=== PATIENT | female | born 1940 | race Caucasian/White ===

== ENCOUNTER 2016-10-25 10:40 | Outpatient (CLI) | payer OTHER ==
--- NOTE | 2016-10-25 13:23 | DIAGNOSTIC IMAGING REPORT ---
PROCEDURE: MR LOWER EXT JOINT WO CONT-LT INDICATION: KNEE INTERNAL DERANGEMENT, LEFT TECHNIQUE: PD and FAT-SAT PD sagittal and coronal images. FAT-SAT PD axial images. High-resolution T2 sagittal images of the cruciate ligaments. (Total of 6 sequences). COMPARISON: None. FINDINGS: Large spurs all three joint compartments. Normal cruciate and collateral ligaments. Peripheral displacement of the medial meniscus with a posterior horn tear, associated with moderate narrowing and chondromalacia of the medial compartment. Normal lateral meniscus with mild chondromalacia of the lateral compartment. Normal quadriceps and patellar tendons. Severe chondromalacia patella and small suprapatellar effusion. There are three loose bodies medially (8 - 12 mm). Small popliteal cyst. IMPRESSION: 1. Large spurs of all three joint compartments 2. Peripheral displacement of the medial meniscus with posterior horn tear, moderate narrowing and chondromalacia of the medial compartment 3. Mild chondromalacia the lateral compartment 4. Severe chondromalacia patella 5. Three loose bodies 6. Small suprapatellar effusion
== END 2016-10-25 23:00 ==
LOC: MRI SRH 10:40
DX: M76.9 Unspecified enthesopathy, lower limb, excluding foot (principal); S83.242A Other tear of medial meniscus, current injury, left knee, initial encounter; M22.42 Chondromalacia patellae, left knee; M23.42 Loose body in knee, left knee; M25.462 Effusion, left knee